=== PATIENT | male | born 2000 | race Caucasian/White ===

== ENCOUNTER 2023-06-23 20:40 | Emergency (ER) | payer SELFPAY ==
[~2023-06-23] VITALS: Ht 167.6 cm; Wt 78.0 kg
[2023-06-23 21:35] VITALS: BP 138/79; PULSE 78; RESP 20; TEMP 98; O2SAT 99
== END 2023-06-23 23:26 | disposition left against medical advice (07) ==
LOC: MED 20:40
DX: M79.609 Pain in unspecified limb (principal); Z53.21 Procedure and treatment not carried out due to patient leaving prior to being seen by health care provider
CPT/HCPCS: 99281